=== PATIENT | male | born 1960 | race Native Hawaiian/Other Pacific Islander ===

== ENCOUNTER 2021-09-28 12:25 | Outpatient (CLI) | payer BC ==
[2021-09-28 13:06] LABS: PLATELET COUNT 376 K/uL (142-355)
[2021-09-28 13:51] LABS: POTASSIUM 4.6 mmol/L (3.6-5.2)
== END 2021-09-28 19:25 | disposition home or self-care (01) ==
LOC: CT 12:25
PROVIDERS: ATTEND Nurse Practitioner
DX: R10.30 Lower abdominal pain, unspecified (principal); R50.9 Fever, unspecified
CPT/HCPCS: 36415; 80053; 81000; 85027; Q9963

== ENCOUNTER 2022-11-12 12:33 | Emergency (ER) | payer BC ==
[~2022-11-12] VITALS: Ht 170.2 cm; Wt 63.5 kg
[2022-11-12 12:33] VITALS: TEMP 98.2
[2022-11-12 13:01] LABS: PLATELET COUNT 469 K/uL (142-355)
[2022-11-12 13:10] LABS: POTASSIUM 4.2 mmol/L (3.6-5.2)
[2022-11-12 13:44] LABS: PARTIAL THROMBOPLASTIN TIME 25.2 SECONDS (24.5-33.6)
[2022-11-12 15:11] VITALS: BP 156/87
== END 2022-11-12 15:11 | disposition home or self-care (01) ==
LOC: ED 12:33
PROVIDERS: Internal Medicine
DX: G45.9 Transient cerebral ischemic attack, unspecified (principal)
CPT/HCPCS: 36415; 80053; 84484; 85027; 85610; 85730; 93005; 99284